=== PATIENT | male | born 1970 | race Caucasian/White ===

== ENCOUNTER 2016-11-15 21:09 | Emergency (ER) | payer MEDICAID, OTHER ==
[~2016-11-15] VITALS: Ht 177.8 cm; Wt 75.0 kg
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
[2016-11-15 21:50] VITALS: BP 137/101; PULSE 104; RESP 16; O2SAT 97
[2016-11-15 23:05] LABS: BASOPHILS % (AUTO) 0.3 % (0-3); EOSINOPHILS % (AUTO) 0.3 % (0-5); MONOCYTES % (AUTO) 6.4 % (4-12); Mean Corpuscular Hemoglobin 29.9 pg (27.0-35.0); NEUTROPHILS % (AUTO) 83.1 % (40-74); Platelet Count 245 bil/L (150-400)
[2016-11-16 00:16] LABS: APPEARANCE,URINE HAZY (CLEAR,HAZY); COLOR,URINE YELLOW (YELLOW); OCCULT BLOOD,URINE TRACE (NEGATIVE); UROBILINOGEN,URINE NORMAL (NORMAL)
[2016-11-16] MEDS ORDERED: Haloperidol 5 mg/mL Inj IM ONE (01:30)
== END 2016-11-16 03:05 | disposition other institution (70) ==
LOC: SED 21:09
DX: F29 Unspecified psychosis not due to a substance or known physiological condition (principal); F12.10 Cannabis abuse, uncomplicated; H93.13 Tinnitus, bilateral; Z59.0 Homelessness
CPT/HCPCS: 36415; 80053; 81001; 81002; 82075; 84443; 85025; 96372; 99285; J1630; J2060